=== PATIENT | male | born 1965 | race Caucasian/White ===

== ENCOUNTER 2020-06-25 00:41 | Inpatient (IN) | payer MEDICARE, OTHER ==
[~2020-06-25] VITALS: Ht 172.7 cm; Wt 83.9 kg
[~2020-06-25 00:41] MED LIST: ALL DAY ALLERGY10 M2 PO; FLONASE 0.05% N16 GM; IBUPROFEN800 MG PO; PROAIR HFA8.5 GM INH; ZOVIRAX 800 MG800 MG PO
[2020-06-25 00:56] LABS: RED BLOOD COUNT 5.03 M/UL (4.20-5.50); WHITE BLOOD COUNT 7.9 K/UL (4.5-11.0)
[2020-06-25 01:17] LABS: BUN/CREATININE RATIO 17 (0-10)
[2020-06-25] MEDS ORDERED: SYMBICORT 16010.2 GM INH (02:38)
[2020-06-25 07:39] LABS: HEMOGLOBIN 14.9 gm/dl (14.0-17.5); RED BLOOD COUNT 5.22 M/UL (4.20-5.50); WHITE BLOOD COUNT 6.9 K/UL (4.5-11.0)
[2020-06-25] MEDS ORDERED: PREDNISOLON5 MG/5 M1 PO (09:25)
[2020-06-25] MEDS ORDERED: BENADRYL 25MG C25 MG PO (09:25)
[2020-06-25] MEDS ORDERED: LOW DOSE ASPIRI81 MG PO (09:25)
[2020-06-25] MEDS ORDERED: NYQUIL (09:26)
[2020-06-25] MEDS ORDERED: PERIDEX15 ML PO (09:27)
[2020-06-25] MEDS ORDERED: AUGMENTIN 875-1 EACH PO (09:28)
[2020-06-25] MEDS ORDERED: LIDOCAINE PO (09:30)
[2020-06-25] MEDS ORDERED: VISTARIL25 MG PO (09:31)
[2020-06-25] MEDS ORDERED: MYCOSTATIN100000 UTS PO (09:31)
[2020-06-25] MEDS ORDERED: VITAMIN B-121000 MC3 PO (09:32)
[2020-06-26 03:57] LABS: HEMOGLOBIN 16.2 gm/dl (14.0-17.5); RED BLOOD COUNT 5.45 M/UL (4.20-5.50); WHITE BLOOD COUNT 10.8 K/UL (4.5-11.0)
[2020-06-26 04:24] LABS: BUN/CREATININE RATIO 15 (0-10)
[2020-06-26 09:15] LABS: HBSAG SCREEN Negative (Negative); HEP A AB, IGM Negative (Negative); HEP B CORE AB, IGM Negative (Negative); HEP C VIRUS AB <0.1 (0.0-0.9)
[2020-06-27 06:04] LABS: HEMOGLOBIN 15.9 gm/dl (14.0-17.5); RED BLOOD COUNT 5.33 M/UL (4.20-5.50); WHITE BLOOD COUNT 10.3 K/UL (4.5-11.0)
[2020-06-27 06:47] LABS: BUN/CREATININE RATIO 20 (0-10)
== END 2020-06-27 16:09 | disposition home or self-care (01) | DRG 444 ==
LOC: ER1 00:41 → CDU 02:52 → M/S 02:52
PROVIDERS: Emergency Medicine; Internal Medicine; ADMIT Internal Medicine
PROC: B24BZZZ Ultrasonography of Heart with Aorta (ICD-10-PCS; principal; 2020-06-25)
DX: K81.0 Acute cholecystitis (principal); K85.90 Acute pancreatitis without necrosis or infection, unspecified; B00.89 Other herpesviral infection; R07.9 Chest pain, unspecified; R22.1 Localized swelling, mass and lump, neck; J43.9 Emphysema, unspecified; J44.9 Chronic obstructive pulmonary disease, unspecified; Z20.822 Contact with and (suspected) exposure to COVID-19; J30.2 Other seasonal allergic rhinitis; I73.9 Peripheral vascular disease, unspecified; I10 Essential (primary) hypertension; F10.21 Alcohol dependence, in remission; Z87.891 Personal history of nicotine dependence; Z83.3 Family history of diabetes mellitus; Z80.9 Family history of malignant neoplasm, unspecified; Z86.73 Personal history of transient ischemic attack (TIA), and cerebral infarction without residual deficits
CPT/HCPCS: ECHO; 36415; 71045; 74183; 76705; 78226; 78452; 80053; 80061; 80074; 80307; 82550; 82553; 83605; 83690; 84439; 84443; 84484; 85025; 85610; 85730; 86140; 93005; 93017; 93306; 96374; 96375; 96376; 99285; A9502; A9537; A9577; C9113; J1335; J1885; J2270; J2785; J7030; Q9967; U0002